=== PATIENT | male | born 1975 | race Hispanic/Latino ===

== ENCOUNTER 2018-08-11 20:14 | Inpatient (IN) | payer SELFPAY, OTHER | END 2018-08-14 14:00 | disposition home or self-care (01) | LOC: EDH 20:14 → EDHIP 20:15 → 4AH 08-12 19:55 | DX: N13.2 Hydronephrosis with renal and ureteral calculous obstruction (principal); Z68.42 Body mass index [BMI] 45.0-49.9, adult; I10 Essential (primary) hypertension; E66.01 Morbid (severe) obesity due to excess calories; E11.65 Type 2 diabetes mellitus with hyperglycemia ==